=== PATIENT | female | born 1940 | race Caucasian/White ===

== ENCOUNTER 2022-09-29 08:57 | Day surgery (SDC) | payer MEDICARE ==
[~2022-09-29 08:57] MED LIST: ALPRAZolam 0.25 MG TAB PO PRN; ALPRAZolam 0.5 MG TAB PO PRN; ASPIRIN 325 MG TAB PO STA; ATORVASTATIN 80 MG TAB PO STA; HEPARIN SODIUM,PORCINE 10,000 UNIT in SODIUM CHLORIDE 0.9% 1,000 ML IRRIGATION PRN; HEPARIN SODIUM,PORCINE 2,500 UNIT in SODIUM CHLORIDE 0.9% 250 ML IRRIGATION PRN; NITROGLYCERIN SL TABS 0.4 MG TAB SUBLINGUAL PRN; SODIUM CHLORIDE 0.9% 1,000 ML in EMPTY BAG 1 BAG IV SCH
[2022-09-29 09:40] VITALS: RESP 18; TEMP 97.7
[2022-09-29] MEDS ORDERED: VERAPAMIL 2.5 MG/ML 2 ML AMP ONE (11:19)
[2022-09-29] MEDS ORDERED: HEPARIN SODIUM,PORCINE 30 ML 30 ML ONE (11:20)
[2022-09-29] MEDS ORDERED: fentaNYL (PF) 50 MCG/ML 2 ML AMP ONE (11:26)
[2022-09-29] MEDS ORDERED: HEPARIN SODIUM 1,000 UN/ML (10ML VL) ONE (11:26)
[2022-09-29] MEDS ORDERED: fentaNYL (PF) 50 MCG/1 ML VIAL IVP ONE (11:33)
[2022-09-29] MEDS ORDERED: MIDAZOLAM 2 MG/2 ML VIAL IVP ONE (11:33)
[2022-09-29] MEDS ORDERED: LIDOCAINE 1% INJ 10MG/ML (5 ML VIAL-PF) SQ ONE (11:35)
[2022-09-29] MEDS ORDERED: VERAPAMIL SYRINGE (5 MG/10 ML) INTRAARTER ONE (11:37)
[2022-09-29] MEDS ORDERED: HEPARIN SODIUM 1,000 UN/ML (10ML VL) IVP ONE (11:45)
[2022-09-29] MEDS ORDERED: IOPAMIDOL-370 125ML BTL INJ ONE (11:52)
[2022-09-29] MEDS ORDERED: RX INFO: IV CONTRAST WAS GIVEN 1 EACH MISC MISCELLANE PRN (12:00)
[2022-09-29] MEDS ORDERED: SODIUM CHLORIDE 0.9% 1,000 ML IV SCH (12:00)
--- NOTE | 2022-09-29 12:30 | CC ---
CARDIAC CATHETERIZATION REPORT INDICATIONS: Chest pain with abnormal stress test showing ischemia in LAD distribution. PROCEDURE NOTE: After obtaining informed consent, left heart catheterization and coronary angiogram were performed via the right radial artery using standard Kevyn catheters. The patient tolerated the procedure well without any obvious immediate complications. She received moderate conscious sedation. Total sedation time was 17 minutes. The patient received 5 mg of verapamil and 3500 units of heparin per protocol. We obtained right radial artery access using modified Seldinger technique, and catheters and wires were floated into the ascending aorta under fluoroscopic guidance. A TR band was used for hemostasis. FINDINGS: 1. Right coronary artery is a large dominant vessel and is free of significant stenosis. 2. Left main coronary artery is a normal-sized vessel and is free of stenosis. Divides into left anterior descending coronary artery and circumflex coronary artery. Circumflex coronary artery and its branches are free of significant stenosis. LAD shows a moderate area of stenosis in the midportion. 3. Hemodynamics: Left ventricular end-diastolic pressure is 12 mm. There is no gradient across the aortic valve. CONCLUSIONS: Moderate nonobstructive disease involving mid LAD. PLAN: Patient will be managed with optimal medical therapy. MMODL / IJN: [id number] /
[2022-09-29] MEDS ORDERED: SODIUM CHLORIDE 0.9% 500 ML 500 ML IV ONE (13:30)
[2022-09-29 14:06] VITALS: BP 126/62
[2022-09-29 15:47] VITALS: PULSE 50
== END 2022-09-29 16:27 | disposition home or self-care (01) ==
LOC: CATHCVL 08:57
PROVIDERS: ATTEND Internal Medicine Cardiovascular Disease
DX: I25.10 Atherosclerotic heart disease of native coronary artery without angina pectoris (principal); I25.9 Chronic ischemic heart disease, unspecified; I10 Essential (primary) hypertension; E78.5 Hyperlipidemia, unspecified; Z82.49 Family history of ischemic heart disease and other diseases of the circulatory system; Z79.899 Other long term (current) drug therapy
CPT/HCPCS: 93458; 99152; C1769; C1894; J2250; J2001; J1644; Q9967; J3010

== ENCOUNTER → 2023-02-17 | Outpatient (CLI) | payer MEDICARE | END | disposition home or self-care (01) | LOC: LABWHC1 11:47 | PROVIDERS: ATTEND Orthopaedic Surgery | DX: Z01.812 Encounter for preprocedural laboratory examination (principal); M16.9 Osteoarthritis of hip, unspecified | CPT/HCPCS: 36415; 85730; 93005 ==

== ENCOUNTER 2023-02-22 10:02 | Day surgery (SDC) | payer MEDICARE ==
[~2023-02-22 10:02] MED LIST changes: +ACETAMINOPHEN TAB 500 MG TAB PO PRN; -ALPRAZolam 0.25 MG TAB PO PRN; -ALPRAZolam 0.5 MG TAB PO PRN; -ASPIRIN 325 MG TAB PO STA; -ATORVASTATIN 80 MG TAB PO STA; +GABAPENTIN 300 MG CAP PO PRN; -HEPARIN SODIUM,PORCINE 10,000 UNIT in SODIUM CHLORIDE 0.9% 1,000 ML IRRIGATION PRN; -HEPARIN SODIUM,PORCINE 2,500 UNIT in SODIUM CHLORIDE 0.9% 250 ML IRRIGATION PRN; +MELOXICAM 7.5 MG TAB PO PRN; -NITROGLYCERIN SL TABS 0.4 MG TAB SUBLINGUAL PRN; -SODIUM CHLORIDE 0.9% 1,000 ML in EMPTY BAG 1 BAG IV SCH; +TRANEXAMIC 1,000 MG/100ML-NACL 1,000 MG in SALINE 1 100ML.BAG IVPB PRN
[2023-02-22] MEDS ORDERED: HYDROmorphone 0.5 MG/0.5 ML SYRINGE IVP PRN ×4 (10:14→12:04)
[2023-02-22] MEDS ORDERED: DEXAMETHASONE SOD PHOSPHATE 4 MG/ML 1 ML VIAL IV ONE (10:14)
[2023-02-22] MEDS ORDERED: ONDANSETRON 4 MG/2 ML VIAL IVP ONE (10:14)
[2023-02-22] MEDS ORDERED: LIDOCAINE 1% (10MG/ML) FOR IV START INTRADERMA PRN (10:14)
[2023-02-22] MEDS ORDERED: MIDAZOLAM 2 MG/2 ML VIAL IV PRN (10:14)
[2023-02-22] MEDS ORDERED: MIDAZOLAM 2 MG/2 ML VIAL IVP ONE (11:00)
[2023-02-22] MEDS: LACTATED RINGERS 1,000 ML IV SCH (11:09)
[2023-02-22] MEDS ORDERED: ONDANSETRON 4 MG/2 ML VIAL IVP PRN (12:04)
[2023-02-22] MEDS ORDERED: NALOXONE 0.4 MG/ML 1 ML VIAL IV PRN (12:04)
[2023-02-22] MEDS ORDERED: MAGNESIUM HYDROXIDE 2,400 MG/30 ML CUP PO PRN (12:04)
[2023-02-22] MEDS ORDERED: ceFAZolin 1,000 MG in SODIUM CHLORIDE 0.9% 1,000 ML IRRIGATION ONE (12:05)
[2023-02-22] MEDS ORDERED: HYDROcodone/APAP 7.5-325MG 1 EACH TAB PO PRN (12:06)
[2023-02-22] MEDS ORDERED: LACTATED RINGERS 1,000 ML IV ONE (12:20)
[2023-02-22] MEDS ORDERED: ROPIVACAINE 5 MG/ML 30 ML VIAL MISCELLANE ONE ×2 (12:28→13:05)
--- NOTE | 2023-02-22 13:12 | P.OP ---
Date of Procedure: 02/22/23 Preoperative Diagnosis: Severe osteoarthritis right hip Postoperative Diagnosis: Severe osteoarthritis right hip Procedure(s) Performed: Right total hip arthroplasty with a direct anterior approach Implants: [employer] Polarstem standard size 3 with a collar [employer] R3, 3 hole hemispherical acetabular shell, 52 mm [employer] Reflection 6.5 mm cancellus screw, 20 mm 2 [employer] R3, XLPE 20 acetabular liner [employer] Oxinium femoral head 36 m, +0 All components were press-fit. The articulation is Oxinium on polyethylene. Anesthesia: spinal Surgeon: Demarcus Madden Sports Administrator #1: Sheree Leigh Estimated Blood Loss (ml): 250 Pathology: none sent Condition: stable Disposition: PACU Indications for Procedure: After failure of conservative treatment we discussed the surgical and nonsur gical treatment options at length. Patient wishes to proceed with a total hip arthroplasty with a direct anterior approach. Complications specific to this procedure were discussed at length, including but not limited to infection, leg length discrepancy, dislocation, nerve injury, and fracture. Covid-19 was also discussed at length with the patient, and they are aware of the current policies and procedures. The patient was given the option of delaying surgery, but they elect to proceed knowing these risks. Patient is aware of all these complications and informed consent was obtained Operative Findings: The operative findings are consistent with severe osteoarthritis of the right hip Description of Procedure: The patient was seen and evaluated in the preoperative area and the consent was reviewed. The operative site was marked with a skin marker. The patient verified the procedure and operative site. A NEHEMIAH block was placed by anesthesia in the preoperative area. The patient was then brought to the operating room and given preoperative antibiotics intravenously. 1 g of Tranexamic acid was also given intravenously. A spinal anesthetic was administered by the anesthesia department. The patient was then placed on the [place] table with the bony prominences well-padded. The hip area was then prepped with a ChloraPrep solution and draped in the usual sterile fashion. A universal timeout was then performed, which confirmed the patient's name, surgical site, ALLERGIES, and procedure being performed on the consent. Next the incision site was located at 1 cm distal and 4 cm lateral to the anterior superior iliac spine. The skin and subcutaneous tissues were sharply incised. Incision was carefully dissected down to the fascia overlying the tensor fascia anahy muscle. This fascia was then incised in line with the muscle fibers. Care was taken to stay laterally in order to avoid injuring the lateral femoral cutaneous nerve. Next, using blunt finger dissection, the tensor fascia anahy muscle was dissected off its investing fascia. The muscle was then carefully retracted laterally with a cobra retractor over the lateral neck of the femur. Next, the circumflex vessels were identified and cauterized using the Aquamantis device. The anterior hip capsule was then exposed. The capsule was then opened and an inverted T fashion. The retractors were then placed intracapsularly. The retractors were maintained intracapsular throughout the procedure. The proximal femur was then visualized. Fluoroscopic x-rays were then taken in order to evaluate the preoperative leg lengths. A small amount of traction was placed on the leg. The femoral neck was then osteotomized at the appropriate level above the lesser trochanter. A small wedge of bone was then removed from the remaining femoral head. Next, using a corkscrew the femoral head was removed from the acetabulum. On gross visual inspection, the femoral head had complete loss of articular cartilage and multiple periarticular osteophytes. The femoral head was then measured. Attention was then turned to the acetabulum. The acetabulum was exposed and any remaining labrum was excised. Sequential reaming of the acetabulum was performed using fluoroscopic guidance until there was a good bed of bleeding cancellus bone. When the appropriate size was reached, a trial was then placed. The position and fit of the trial was checked with fluoroscopy. The trial was then removed. Then, using fluoroscopic guidance, the final implant was impacted at 20 of anteversion and 40 of abduction, and fully seated in the acetabulum. 2 screws were then placed in the acetabulum. Again fluoroscopy was used to check position of the screws. Next, the liner was then impacted, with a 20 elevated liner located in the anterior superior quadrant. Component locking was confirmed. Attention was then directed to the femur. With the aid of the [place] table, the femur was externally rotated to approximately 130, extended, and adducted under the opposite leg. A side hook was then placed under the proximal femur, and the side hook elevator was used to elevate the proximal femur while releasing the capsule. Retractors were then placed. A capsular release was performed, as well as a release of the conjoined tendon, which afforded excellent vi sualization of the proximal femur. Next, a box osteotome was used to lateralize the proximal femur. A kiss setter hand was then used to locate the femoral canal. Sequential broaching was then performed with appropriate size which afforded excellent fixation in the proximal femur. A trial was then placed with appropriate head and neck, and the hip was gently reduced with the aid of the [place] table. Fluoroscopy was then used to check position of the components, as well as to evaluate the leg lengths and offset. The leg lengths and offset were measured as closely as possible to ensure stability of the hip. The hip was then gently dislocated and the trials were then removed. Final implants were then impacted and the hip was again reduced. Final fluoroscopic x-rays confirmed that the components were in anatomic position. The leg lengths and offset were measured and were found to coincide with the trial measurements. The hip was also taken through range of motion, and found to be stable. The hip was then copiously irrigated with antibiotic solution with pulsatile lavage. The hip was then irrigated with Irrisept solution. The soft tissues were then injected with a ropivacaine solution. A second dose of 1 g of Tranexamic acid was also given intravenously. The fascia was then closed with 2-0 strata fix suture. The subcutaneous tissue was closed with 3-0 Vicryl. The subcuticular tissue was closed with 3-0 strata fix suture. The skin was then closed with Exofin skin glue. After the glue and dried, and Optifoam silver impregnated dressing was applied. The patient was th en transferred to the recovery room in stable condition. The perinatal breastfeeding assistant AKIN Fuentes was required due to the complexity of surgery, and the need for skilled regional vice president surgical sales for positioning, draping, exposure, retraction, and closure of the wound.
--- NOTE | 2023-02-22 13:36 | XR ---
Fluoroscopy History: RIGHT ANTERIOR HIP 33 SEC FLUORO, 1.8215 Gycm2
--- NOTE | 2023-02-22 14:08 | XR ---
EXAMINATION TYPE: XR Hip Limited RT DATE OF EXAM: 02/22/2023 CLINICAL HISTORY: Postoperative evaluation TECHNIQUE: Single portable view of the right hip was submitted. FINDINGS: Noted are changes of total hip arthroplasty with femoral and acetabular components appearin g well seated. Alignment is anatomic. Postsurgical soft tissue changes are evident. IMPRESSION: Satisfactory postoperative alignment
[2023-02-22] MEDS: SODIUM CHLORIDE 0.9% 1,000 ML IV SCH ×2 (14:32→23:05)
--- NOTE | 2023-02-22 15:40 | P.ANPRN ---
Procedure Note - Anesthesia - Nerve Block Performed Right Davi Single Time Out Performed: Yes Date of Procedure: 02/22/23 Procedure Start Time: 10:59 Procedure Stop Time: 11:02 Location of Patient: PreOp Indication: Acute Post-Operative Pain, Requested by Surgeon Sedation Type: Sedate with meaningful contact maintained Preparation: Sterile Prep Position: Supine Needle Types: Pajunk Needle Gauge: 21 Ultrasound used to visualize needle placement: Yes Ultrasound used to observe medication spread: Yes Blood Aspirated: No Pain Paresthesia on Injection Noted: No Resistance on Injection: Normal Image Stored and Saved: Yes Events: Uneventful and Well Tolerated (ropi .5% 20cc plus dexametasone 4mg)
[2023-02-22] MEDS ORDERED: NITROGLYCERIN SL TABS 0.4 MG TAB SUBLINGUAL PRN (16:13)
[2023-02-22] MEDS ORDERED: SODIUM CHLORIDE 5% OPHTH DROPS 15 ML BTL BOTH EYES SCH (17:00)
[2023-02-22] MEDS: SENNOSIDES-DOCUSATE SODIUM 1 EACH TAB PO SCH (23:00)
[2023-02-22] MEDS: ASPIRIN 325 MG TAB PO SCH (23:01)
[2023-02-22] MEDS: SODIUM CHLORIDE 5% OPHTH OINT 3.5 GM TUBE BOTH EYES SCH (23:01)
[2023-02-22] MEDS: SODIUM CHLORIDE 5% OPHTH DROPS 15 ML BTL BOTH EYES SCH (23:01)
[2023-02-23] MEDS: LEVOTHYROXINE 100 MCG TAB PO SCH (05:30)
[2023-02-23] MEDS: ISOSORBIDE MONONITRATE ER 30 MG TAB.ER.24H PO SCH (10:19)
[2023-02-23] MEDS: ASPIRIN 325 MG TAB PO SCH ×2 (10:19→21:20)
[2023-02-23] MEDS: METOPROLOL TARTRATE 50 MG TAB PO SCH ×2 (10:19→21:20)
[2023-02-23] MEDS: ATORVASTATIN 20 MG TAB PO SCH (10:19)
--- NOTE | 2023-02-23 10:19 | P.CONS ---
History of Present Illness - Reason for Consult Consult date: 02/22/23 Medical management, status post total right hip arthroplasty - History of Present Illness This is a pleasant 82-year-old female who was admitted under orthopedic services scheduled right hip arthroplasty and is postop day 0. Patient follows with [facility] in [place] with Dr. Kristopher Wilkinson with a past medical history of hypertension, osteoarthritis, hypothyroid, frequent UTIs with urinary incontinence, anxiety. Patient denies ever smoking although does had secondhand smoke exposure rarely drinks alcohol and denies any other illicit drug use. Patient did undergo presurgical clearance with primary care office in the outpatient setting. Patient is postop today and right hip anterior approach surgical dressing is dry and intact with some minimal swelling around and no surrounding redness and soft and palpable. Review Of Systems: Constitutional: No fever, no chills, no night sweats. No weight change. No weakness, fatigue or lethargy. No daytime sleepiness. EENT: No headache. No blurred vision or double vision, no loss of vision. No loss of Hearing, no ringing in the ears, no dizziness. No nasal drainage or congestion. No epistaxis. No sore throat. Lungs: No shortness of breath, cough, no sputum production. No wheezing. Cardiovascular: No chest pain, no lower extremity edema. No palpitations. No paroxysmal nocturnal dyspnea. No orthopnea. No lightheadedness or dizziness. No syncopal episodes. Abdominal: No abdominal pain. No nausea, vomiting. No diarrhea. No constipation. No bloody or tarry stools.. No loss of appetite. Genitourinary: No dysuria, increased frequency, urgency. No urinary retention. Musculoskeletal: No myalgias. No muscle weakness, no gait dysfunction, no frequent falls. No back pain. No neck pain. Reports some right lower extremity tingling at the site Integumentary: No wounds, no lesions. No rash or pruritus. No unusual bruising. No change in hair or nails. Neurologic: No aphasia. No facial droop. No change in mentation. No head injury. No headache. No paralysis. No paresthesia. Psychiatric: No depression. No anxiety. No mood swings. Endocrine: No abnormal blood sugars. No weight change. No excessive sweating or thirst. No cold intolerance. PHYSICAL EXAMINATION: GENERAL: The patient is alert and oriented x4, Well developed, well nourished. HEENT: Pupils are round and equally reacting to light. EOMI. no scleral icterus. No conjunctival pallor. Normocephalic, atraumatic. No pharyngeal erythema. No thyromegaly. CARDIOVASCULAR: S1 and S2 muffled PULMONARY: Breath sounds clear to auscultation with no wheezing or rhonchi noted. ABDOMEN: soft. Nontender on exam. obese. non-distended, normoactive bowel sounds. No palpable organomegaly. MUSCULOSKELETAL: No joint swelling or deformity. EXTREMITIES: No cyanosis, clubbing, or pedal edema. Right surgical hip dressing is dry and intact with minimal swelling on the right outer aspect and soft and palpable all around the site including groin area NEUROLOGICAL: Gross neurological examination did not reveal any focal deficits. Diffuse weakness SKIN: No rashes. Assessment: Status post right total hip arthroplasty Hypertension history, currently normotensive and will hold blood pressure meds and reevaluate during hospitalization to resume History of osteoarthritis Hypothyroidism history History of urinary incontinence with frequent UTIs, was just recently treated with penicillin and last dose was yesterday in the outpatient setting History of anxiety GI prophylaxis DVT prophylaxis Full code Plan: Patient continue with current medications and pain management per orthopedics. Given patient's age would recommend limiting IV narcotic medications Home medications have been reviewed and resumed as appropriate. Will hold blood pressure medications postoperatively and resume as needed as patient is currently normotensive and monitoring closely for any postoperative hypotension Incentive spirometer at the bedside and encourage the patient to continue using at least 10 times every hour while awake. Patient was instructed on proper use of the device Patient to be evaluated by physical therapy in the a.m. and will discuss with case management/social work about discharge planning as patient will be home alone and may require rehab. Will await PT/OT therapy evaluation Will follow-up on repeat labs in the a.m. We will continue to follow with orthopedics during hospitalization. Thank you kindly for this consultation. The impression and plan of care has been dictated by Michelle Olmstead, nurse practitioner as directed. Dr. Bebe MD I have performed a history and examination and MDM of this patient, discussed the same with the dictator, and agree with the dictator's assessment and plan as written ,documented as a scribe. Based on total visit time, I have performed more than 50% of the visit. Any additional findings or plans will be noted. Past Medical History Past Medical History: Hypertension, Osteoarthritis (OA), Thyroid Disorder Additional Past Medical History / Comment(s): occasional urinary incontinence, currently being tx. for UTI, right hip pain History of Any Multi-Drug Resistant Organisms: None Reported Past Surgical History: Appendectomy, Cholecystectomy, Heart Catheterization, Tubal Ligation Past Anesthesia/Blood Transfusion Reactions: Postoperative Nausea & Vomiting (PONV) Additional Past Anesthesia/Blood Transfusion Reaction / Comm: PONV only happened once years ago Past Psychological History: Anxiety Smoking Status: Never smoker, Second hand smoke exposure Past Alcohol Use History: Rare Past Drug Use History: None Reported - Past Family History Mother Family Medical History: Myocardial Infarction (NH) Medications and Allergies Home Medications Medication Instructions Recorded Confirmed Type Aspirin 81 mg PO DAILY 09/29/22 02/17/23 History Isosorbide Mononitrate [Isosorbide 30 mg PO DAILY 09/29/22 02/22/23 History Mononitrate ER] Levothyroxine Sodium [Euthyrox] 100 mcg PO DAILY 09/29/22 02/22/23 History Metoprolol Tartrate [Lopressor] 50 mg PO BID 09/29/22 02/22/23 History Nitroglycerin Sl Tabs [Nitrostat] 0.4 mg PO DAILY PRN 09/29/22 02/22/23 History Valsartan/Hydrochlorothiazide 1 each PO DAILY 09/29/22 02/22/23 History [Valsartan-Hctz 320-25 mg Tab] Ibuprofen [Motrin Ib] 200 mg PO Q6H PRN 02/17/23 02/17/23 History Penicillin V Potassium [Pen Vee K] 500 mg PO Q8H 02/17/23 02/17/23 History Rosuvastatin [Crestor] 10 mg PO DAILY 02/17/23 02/17/23 History amLODIPine [Norvasc] 10 mg PO DAILY 02/21/23 02/22/23 History Aspirin 325 mg PO BID #60 tab 02/22/23 Rx HYDROcodone/APAP 7.5-325MG [[place] 1 - 2 tab PO Q6H PRN #32 tab 02/22/23 Rx 7.5-325] Sennosides [Senokot] 2 tab PO DAILY PRN #60 tablet 02/22/23 Rx Allergies Allergy/AdvReac Type Severity Reaction Status Date / Time No Known Allergies Allergy Verified 02/22/23 10:21 Physical Exam Vitals: Vital Signs Temp Pulse Pulse Resp BP BP Pulse Ox 02/22/23 14:59 51 L 02/22/23 14:27 54 L 16 114/56 98 02/22/23 14:12 52 L 16 107/61 99 02/22/23 13:57 51 L 16 109/62 96 02/22/23 13:42 50 L 16 109/62 100 02/22/23 13:27 96.8 F L 54 L 16 100/56 98 02/22/23 11:09 61 16 134/67 99 02/22/23 10:39 97.5 F L 64 16 186/79 98 Intake and Output 02/22/23 02/22/23 02/22/23 06:59 14:59 22:59 Intake Total 1251 Output Total 250 Balance 1001 Intake: IV 1251 Output: Estimated Blood Loss 250 Other: Weight 72.3 kg 72.3 kg
[2023-02-23] MEDS: SODIUM CHLORIDE 5% OPHTH DROPS 15 ML BTL BOTH EYES SCH ×3 (10:20→21:20)
[2023-02-23] MEDS: amLODIPine 10 MG TAB PO SCH (10:41)
--- NOTE | 2023-02-23 11:28 | P.PN ---
Subjective Progress Note Date: 02/23/23 This is a 82-year-old female who is status post right total hip arthroplasty. This is postoperative day #1 and patient is seen and evaluated at bedside with Dr. Demarcus Madden. Patient states that her pain is well controlled and she was able to work with physical therapy. Objective - Vital Signs Vital signs: Vital Signs Temp 97.8 F 02/23/23 07:54 Pulse 69 02/23/23 07:54 Resp 17 02/23/23 07:54 BP 139/76 02/23/23 07:54 Pulse Ox 98 02/23/23 07:54 FiO2 Intake & Output 02/22/23 02/23/23 02/23/23 18:59 06:59 18:59 Intake Total 1251 Output Total 250 Balance 1001 Weight 72.3 kg Intake: IV 1251 Output: Estimated Blood Loss 250 Other: Voiding Method Toilet Toilet # Voids 1 1 - Exam Vital signs are stable. Patient is in no acute distress and is alert and oriented 3. Calf is soft and nontender to palpation. Dressing is clean, dry, and intact. Patient has full foot and ankle motion without pain or difficulty. Sensation intact. Neurovascular status and circulatory status are intact. Assessment and Plan (1) Osteoarthritis of right hip Current Visit: Yes Status: Acute Code(s): M16.11 - UNILATERAL PRIMARY OSTEOARTHRITIS, RIGHT HIP SNOMED Code(s): 576086283608206 (2) S/P total hip arthroplasty Current Visit: Yes Status: Acute Code(s): Z96.649 - PRESENCE OF UNSPECIFIED ARTIFICIAL HIP JOINT SNOMED Code(s): 125392590432 Plan: Continue routine postop care and pain control. Continue anticoagulation with aspirin. Weightbearing as tolerated with a walker. Leave dressing in place for 7 days. Appreciate input from medicine. Anticipate discharge home with homecare tomorrow.
[2023-02-23 12:45] LABS: BUN/Creat Ratio 25.29 Ratio (12.00-20.00); Blood Urea Nitrogen 17.7 mg/dL (9.0-27.0); Calcium 9.1 mg/dL (8.7-10.3); Carbon Dioxide 25.7 mmol/L (21.6-31.8); Chloride 100 mmol/L (96-109); Glucose 120 mg/dL (70-110); Potassium 3.7 mmol/L (3.5-5.5); Sodium 135 mmol/L (135-145)
[2023-02-23 12:49] LABS: HCT 30.3 % (37.2-46.3); HGB 10.3 d/dL (12.0-15.0); MCV 94.1 FL (80.0-97.0); Mean Platelet Volume 12.3 FL (9.5-12.2); NRBC Per 100 WBC 0 X 10*3/uL (0.00-0.01); Platelet Count 189 X 10*3/uL (140-440); RBC 3.22 X 10*6/uL (4.10-5.20); RDW 12.8 % (11.5-14.5); WBC 13.81 X 10*3/uL (4.50-10.00)
[2023-02-23 14:26] LABS: Basophils # (A) 0.01 X 10*3/uL (0.00-0.10); Basophils % (A) 0.1 %; Eosinophils # (A) 0 X 10*3/uL (0.04-0.35); Eosinophils % (A) 0 %; Lymphocytes # (A) 1.43 X 10*3/uL (0.90-5.00); Lymphocytes % (A) 10.4 %; Monocytes # (A) 1.69 X 10*3/uL (0.20-1.00); Monocytes % (A) 12.2 %; Neutrophils # (A) 10.64 X 10*3/uL (1.80-7.70); RBC Morphology Normal (Normal)
[2023-02-23] MEDS: LACTATED RINGERS 1,000 ML IV SCH (15:11)
--- NOTE | 2023-02-23 15:22 | P.PN ---
Subjective Progress Note Date: 02/23/23 This is a pleasant 82-year-old female who was admitted under orthopedic services scheduled right hip arthroplasty and is postop day 0. Patient follows with [facility] in [place] with Dr. Kristopher Wilkinson with a past medical history of hypertension, osteoarthritis, hypothyroid, frequent UTIs with urinary incontinence, anxiety. Patient denies ever smoking although does had secondhand smoke exposure rarely drinks alcohol and denies any other illicit drug use. Patient did undergo presurgical clearance with primary care office in the outpatient setting. Patient is postop today and right hip anterior approach surgical dressing is dry and intact with some minimal swelling around and no surrounding redness and soft and palpable. 02/23/2023 Patient is seen in follow-up today currently sitting up in the chair after just working with physical therapy. Patient reports some right hip pain although is manageable on current regimen. Patient with incentive spirometer at bedside and encouraged to continue using at least 10 times every hour. Patient reports has been using very frequently. Case management following and arranging for home care and patient will be going home possibly tomorrow after a family member arrives for assistance in the home. Patient is currently afebrile denies chest pain or shortness of breath. Patient tolerating diet with no reports of nausea or vomiting noted. All medications have been reviewed and resumed. Blood pressure mildly elevated and will resume her Norvasc. Review of systems: Constitutional: No reports of fatigue, fever, or chills Cardiovascular: No reports of chest pain or palpitations Respiratory: No reports of shortness of breath or cough GI: No reports of nausea, vomiting, or diarrhea : No reports of dysuria or retention Neurovascular: reports of generalized weakness and some pain of the right hip All medications have been reviewed PHYSICAL EXAMINATION: GENERAL: The patient is alert and oriented x4, Well developed, well nourished. HEENT: Pupils are round and equally reacting to light. EOMI. no scleral icterus. No conjunctival pallor. Normocephalic, atraumatic. No pharyngeal erythema. No thyromegaly. CARDIOVASCULAR: S1 and S2 muffled PULMONARY: Breath sounds clear to auscultation with no wheezing or rhonchi noted. ABDOMEN: soft. Nontender on exam. obese. non-distended, normoactive bowel sounds. No palpable organomegaly. MUSCULOSKELETAL: No joint swelling or deformity. EXTREMITIES: No cyanosis, clubbing, or pedal edema. Right surgical hip dressing is dry and intact with minimal swelling on the right outer aspect and soft and palpable all around the site including groin area NEUROLOGICAL: Gross neurological examination did not reveal any focal deficits. Diffuse weakness SKIN: No rashes. Assessment: Status post right total hip arthroplasty Hypertension history History of osteoarthritis Hypothyroidism history History of urinary incontinence with frequent UTIs, was just recently treated with penicillin and last dose was yesterday in the outpatient setting History of anxiety GI prophylaxis DVT prophylaxis Full code Plan: Patient continue with current medications and pain management per orthopedics. Patient reports pain is managed on current regimen and has not required IV pain medications Home medications have been reviewed and resumed as appropriate. [facility] resumed Incentive spirometer at the bedside and encourage the patient to continue using at least 10 times every hour while awake. Patient was instructed on proper use of the device Patient was able to work with physical therapy and did relatively well. Plan is for patient to go home with home care and another family member is coming to stay with her and will be there at the home tomorrow. Case management arranging for home care outpatient Will monitor overnight for pain control and probable discharge in 24 hours. Patient is medically stable for discharge once cleared by orthopedics. We will continue to follow with orthopedics during hospitalization. Thank you kindly for this consultation. The impression and plan of care has been dictated by Michelle Olmstead, nurse practitioner as directed. Dr. Bebe MD I have performed a history and examination and MDM of this patient, discussed the same with the dictator, and agree with the dictator's assessment and plan as written ,documented as a scribe. Based on total visit time, I have performed more than 50% of the visit. Any additional findings or plans will be noted. Objective - Vital Signs Vital signs: Vital Signs Temp 97.8 F 02/23/23 07:54 Pulse 69 02/23/23 07:54 Resp 17 02/23/23 07:54 BP 139/76 02/23/23 07:54 Pulse Ox 98 02/23/23 07:54 FiO2 Intake & Output 02/22/23 02/23/23 02/23/23 18:59 06:59 18:59 Intake Total 1251 Output Total 250 Balance 1001 Weight 72.3 kg Intake: IV 1251 Output: Estimated Blood Loss 250 Other: Voiding Method Toilet Toilet # Voids 1 1 - Labs CBC & Chem 7: 02/23/23 06:58 02/23/23 06:58
[2023-02-23] MEDS: HYDROcodone/APAP 7.5-325MG 1 EACH TAB PO PRN ×2 (17:18→23:34)
[2023-02-23] MEDS: SODIUM CHLORIDE 0.9% 1,000 ML IV SCH (21:19)
[2023-02-23] MEDS: SENNOSIDES-DOCUSATE SODIUM 1 EACH TAB PO SCH (21:20)
[2023-02-23] MEDS: SODIUM CHLORIDE 5% OPHTH OINT 3.5 GM TUBE BOTH EYES SCH (21:20)
[2023-02-24 02:36] VITALS: RESP 18
[2023-02-24] MEDS: HYDROcodone/APAP 7.5-325MG 1 EACH TAB PO PRN (06:12)
[2023-02-24] MEDS: LEVOTHYROXINE 100 MCG TAB PO SCH (06:12)
[2023-02-24 08:20] VITALS: BP 121/71; PULSE 64; TEMP 98.9
[2023-02-24] MEDS: LACTATED RINGERS 1,000 ML IV SCH (09:34)
[2023-02-24] MEDS: ASPIRIN 325 MG TAB PO SCH (10:04)
[2023-02-24] MEDS: ISOSORBIDE MONONITRATE ER 30 MG TAB.ER.24H PO SCH (10:04)
[2023-02-24] MEDS: SODIUM CHLORIDE 0.9% 1,000 ML IV SCH (10:05)
[2023-02-24] MEDS: SODIUM CHLORIDE 5% OPHTH DROPS 15 ML BTL BOTH EYES SCH (10:05)
[2023-02-24] MEDS: METOPROLOL TARTRATE 50 MG TAB PO SCH (10:05)
[2023-02-24] MEDS: ATORVASTATIN 20 MG TAB PO SCH (10:05)
[2023-02-24] MEDS: amLODIPine 10 MG TAB PO SCH (10:05)
--- NOTE | 2023-02-24 10:59 | P.DS ---
Providers Expected date of discharge: 02/24/23 Attending physician: Demarcus Madden Consults: 02/22/23 12:04 Consult Physician Routine Consulting Provider: Katelyn Rush Consult Reason/Comments: medical management Do you want consulting provider notified?: Yes Primary care physician: Kristopher Wilkinson - Discharge Diagnosis(es) (1) Osteoarthritis of right hip Current Visit: Yes Status: Acute (2) S/P total hip arthroplasty Current Visit: Yes Status: Acute Hospital Course: This is a 82-year-old female with known history of degenerative arthritis of the right hip. The patient presented for evaluation as an outpatient. After discussion and consideration patient elects to proceed with total hip arthroplasty. The patient is seen preoperatively by Dr. Madden and medically cleared for surgery by their primary care physician. Patient is admitted to [facility] on 02/22/2023 for total hip arthroplasty. The procedure is performed without complication or sequelae. The patient is doing well postoperatively. Labs and vital signs are stable on day of discharge. On day of discharge patient's hip incision is healing well. There is minimal erythema. There is no drainage noted at this time. There is minimal soft tissu e swelling to the hip and thigh. Patient has full foot and ankle motion without difficulty or pain. Calf is soft and nontender to palpation. Neurovascular status to the right lower extremity is intact. Patient is discharged home in good condition. Please see med rec for accurate list of home medications. Plan - Discharge Summary Discharge Rx Participant: Yes New Discharge Prescriptions: New Magnesium Hydroxide [Milk of Magnesia] 2,400 mg PO DAILY PRN ml PRN Reason: Constipation HYDROcodone/APAP 7.5-325MG [[place] 7.5-325] 1 - 2 tab PO Q6H PRN #32 tab PRN Reason: Pain Ondansetron Odt [Zofran Odt] 1 tab PO Q8HR PRN #10 tab PRN Reason: Nausea Aspirin 325 mg PO BID #60 tab Sennosides [Senokot] 2 tab PO DAILY PRN #60 tablet PRN Reason: Constipation Sodium Chloride 5% Ophth Oint [Roxie 128] 1 applic BOTH EYES HS each Sodium Chloride 5% Ophth Soln [Roxie 128] 1 drops BOTH EYES TID ml Continue Isosorbide Mononitrate [Isosorbide Mononitrate ER] 30 mg PO DAILY Rosuvastatin [Crestor] 10 mg PO DAILY Metoprolol Tartrate [Lopressor] 50 mg PO BID Nitroglycerin Sl Tabs [Nitrostat] 0.4 mg PO DAILY PRN PRN Reason: Chest Pain Levothyroxine Sodium [Euthyrox] 100 mcg PO DAILY amLODIPine [Norvasc] 10 mg PO DAILY Discontinued Aspirin 81 mg PO DAILY Ibuprofen [Motrin Ib] 200 mg PO Q6H PRN PRN Reason: Pain Valsartan/Hydrochlorothiazide [Valsartan-Hctz 320-25 mg Tab] 1 each PO DAILY Penicillin V Potassium [Pen Vee K] 500 mg PO Q8H Discharge Medication List Isosorbide Mononitrate [Isosorbide Mononitrate ER] 30 mg PO DAILY 09/29/22 [History] Levothyroxine Sodium [Euthyrox] 100 mcg PO DAILY 09/29/22 [History] Metoprolol Tartrate [Lopressor] 50 mg PO BID 09/29/22 [History] Nitroglycerin Sl Tabs [Nitrostat] 0.4 mg PO DAILY PRN 09/29/22 [History] Rosuvastatin [Crestor] 10 mg PO DAILY 02/17/23 [History] amLODIPine [Norvasc] 10 mg PO DAILY 02/21/23 [History] Aspirin 325 mg PO BID #60 tab 02/24/23 [Rx] HYDROcodone/APAP 7.5-325MG [[place] 7.5-325] 1 - 2 tab PO Q6H PRN #32 tab 02/24/23 [Rx] Magnesium Hydroxide [Milk of Magnesia] 2,400 mg PO DAILY PRN ml 02/24/23 [Rx] Ondansetron Odt [Zofran Odt] 1 tab PO Q8HR PRN #10 tab 02/24/23 [Rx] Sennosides [Senokot] 2 tab PO DAILY PRN #60 tablet 02/24/23 [Rx] Sodium Chloride 5% Ophth Oint [Roxie 128] 1 applic BOTH EYES HS each 02/24/23 [Rx] Sodium Chloride 5% Ophth Soln [Roxie 128] 1 drops BOTH EYES TID ml 02/24/23 [Rx] Follow up Appointment(s)/Referral(s): Kristopher Wilkinson MD [Primary Care Provider] - [facility] [NON-STAFF] - As Needed Demarcus Madden DO [Doctor of Osteopathic Medicine] - 03/07/23 1:00 pm Activity/Diet/Wound Care/Special Instructions: Weightbearing as tolerated with walker. Leave dressing intact. Dressing may be removed by home care nurse or by patient in 7 days. Then change dressing twice daily until follow up. May shower with initial dressing intact and after removal. If dressing become saturated, please remove. Please take aspirin 325mg twice daily for 30 days to prevent blood clots. Recommend use of compression stockings daily until follow up to help prevent swelling and blood clots. May remove at night before sleeping. Please follow-up with [facility] 2 [facility] and call with any questions or concerns, . Discharge Disposition: HOME WITH HOME HEALTH SERVICES
== END 2023-02-24 15:20 | disposition home health service (06) ==
LOC: OR 10:02 → 4SSUR 13:24 → OR 02-24 15:20
PROVIDERS: ATTEND Orthopaedic Surgery
DX: M16.11 Unilateral primary osteoarthritis, right hip (principal); I10 Essential (primary) hypertension; E03.9 Hypothyroidism, unspecified; Z87.440 Personal history of urinary (tract) infections; F41.9 Anxiety disorder, unspecified; Z79.82 Long term (current) use of aspirin; Z90.49 Acquired absence of other specified parts of digestive tract; Z98.890 Other specified postprocedural states; Z77.22 Contact with and (suspected) exposure to environmental tobacco smoke (acute) (chronic); Z79.899 Other long term (current) drug therapy; Z79.890 Hormone replacement therapy
CPT/HCPCS: 97116; 97161; 97535; 97165; 64447; 86900; 86901; 80048; 85025; 86850; 73501; 27130; C1776; J2250; J1100; J0690 ×3; J2405; J2795